=== PATIENT | female | born 1960 | race Two or more races ===

== ENCOUNTER 2024-04-08 08:00 | Emergency (ER) | payer MEDICARE ==
[~2024-04-08] VITALS: Ht 157.5 cm; Wt 68.9 kg
[2024-04-08] MEDS ORDERED: ACETAMINOPHEN ES 500 MG TABLET ONE (08:13)
[2024-04-08] MEDS: IV NS 0.9% 1,000 ML BAG IV ONE (08:25)
[2024-04-08] MEDS: ACETAMINOPHEN ES 500 MG TABLET PO ONE (08:26)
[2024-04-08 08:36] LABS: BASOPHILS % (AUTO) 0.2 % (0.0-2.0); HEMATOCRIT 44 % (33-45); HEMOGLOBIN 14.7 g/dL (11.5-14.8); LYMPHOCYTES # (AUTO) 1.2 K/uL (0.8-4.8); MEAN CORPUSCULAR HEMOGLOBIN 32 PG (26.0-33.0); MEAN CORPUSCULAR HGB CONC 34 g/dl (31.0-36.0); MEAN CORPUSCULAR VOLUME 94 fL (82-100); MONOCYTES # (AUTO) 0.5 K/uL (0.1-1.30); MONOCYTES % (AUTO) 5.3 % (2.0-12.0); NEUTROPHILS # (AUTO) 8.4 K/uL (1.8-8.9); NEUTROPHILS % (AUTO) 82.5 % (43.0-81.0); PLATELET COUNT (AUTO) 313 K/uL (150-450); RED BLOOD CELL COUNT(AUTO) 4.61 MIL/uL (4.0-5.2); RED CELL DISTRIBUTION WIDTH 13.7 % (11.5-15.0); WHITE BLOOD COUNT (AUTO) 10.2 K/uL (4.3-11.0)
[2024-04-08 08:46] LABS: CALCIUM, SERUM 8.7 mg/dL (8.5-10.1); CREATININE 0.9 mg/dL (0.6-1.3); POTASSIUM 3.9 mmol/L (3.5-5.1)
[2024-04-08 08:52] LABS: ALBUMIN 3.8 g/dL (3.4-5.0); BILIRUBIN,DIRECT 0.1 mg/dL (0.0-0.2); BILIRUBIN,TOTAL 0.2 mg/dL (0.2-1.0)
[2024-04-08] MEDS ORDERED: FENTANYL PF 100MCG/2ML AMPUL ONE ×2 (08:52→11:37)
[2024-04-08] MEDS ORDERED: KETOROLAC TROMETHAMINE 15 MG/ML VIAL ONE ×2 (08:52→11:37)
[2024-04-08] MEDS ORDERED: ONDANSETRON HCL/PF 4 MG/2 ML VIAL ONE (08:52)
[2024-04-08] MEDS: FENTANYL PF 100MCG/2ML AMPUL IV ONE ×2 (09:08→11:43)
[2024-04-08] MEDS: ONDANSETRON HCL/PF 4 MG/2 ML VIAL IV ONE (09:09)
[2024-04-08] MEDS: KETOROLAC TROMETHAMINE 15 MG/ML VIAL IV ONE ×2 (09:09→11:44)
[2024-04-08 10:28] LABS: APPEARANCE,URINE CLEAR (CLEAR); BILIRUBIN,URINE NEGATIVE (NEGATIVE); BLOOD, URINE 2+ Ery/uL (NEGATIVE); COLOR,URINE YELLOW (YELLOW); KETONES,URINE NEGATIVE (NEGATIVE); LEUKOCYTE ESTERASE ,URINE NEGATIVE (NEGATIVE); NITRITE, URINE NEGATIVE (NEGATIVE); PH,URINE 6.5 (5.0-8.0); PROTEIN,URINE NEGATIVE (NEGATIVE); UGLUCOSE NEGATIVE (NEGATIVE); UROBILINOGEN,URINE 0.2 EU/dL (0.2)
[2024-04-08 10:36] LABS: ADD URINE CULTURE NO; BACTERIA,URINE None seen /HPF (None Seen); SQUAMOUS EPITHELIAL CELL,UR Few /HPF (None Seen); WBC,URINE 0-2 /HPF (0-3)
[2024-04-08] MEDS ORDERED: HYDR-4303 PO (11:29)
[2024-04-08] MEDS ORDERED: ONDA4TAB5 PO (11:29)
[2024-04-08] MEDS ORDERED: TAMS-12 PO (11:29)
[2024-04-08] MEDS ORDERED: IBUP-1955 PO (11:29)
[2024-04-08 12:04] VITALS: BP 138/78; TEMP 98.5; O2SAT 98
== END 2024-04-08 12:04 | disposition home or self-care (01) ==
LOC: ER 08:08
DX: N20.0 Calculus of kidney (principal); R11.2 Nausea with vomiting, unspecified; R31.9 Hematuria, unspecified; Z87.19 Personal history of other diseases of the digestive system; Z88.5 Allergy status to narcotic agent
CPT/HCPCS: 99285; 74176; 96374; 96375; 96361; 96376; 85025; 80048; 83690; 80076; 81001; 36415; J3010 ×2; J2405; J7030; J1885 ×2